=== PATIENT | female | born 1975 | race Caucasian/White ===

== ENCOUNTER 2018-06-12 15:38 | Emergency (ER) | payer MEDICAID, OTHER ==
[~2018-06-12] VITALS: Ht 172.7 cm; Wt 77.1 kg
[2018-06-12 17:18] LABS: Basophils # (auto) 0 uL; Basophils % (auto) 0.3 % (0.0-2.0); Eosinophils # (auto) 0 uL; Lymphocytes # (auto) 0.5 uL; Mean Corpuscular Hemoglobin 34.9 pg (28.0-32.0); Monocytes # (auto) 0.6 uL; Red Cell Distribution Width 13.9 % (11.8-14.3)
[2018-06-12 17:21] LABS: Hematocrit 44.8 % (36.0-46.0); Hemoglobin 15.1 g/dL (12.2-16.2); Lymphocytes % (auto) 3.1 % (10.0-50.0); Mean Corpuscular Hgb Conc. 33.7 g/dL (32.0-36.0); Mean Corpuscular Volume 103.5 fL (80.0-100.0); Monocytes % (auto) 3.9 % (0.0-12.0); Neutrophils # (auto) 13.9 uL; Neutrophils % (auto) 92.7 % (37.0-80.0); Platelet Count (auto) 251 10^3/uL (140-450); Red Blood Cells 4.33 10^6/uL (4.0-5.20)
[2018-06-12 17:36] LABS: Alanine Aminotransferase 19 U/L (13-56); Albumin 3.8 g/dL (3.4-5.0); Anion Gap 6 (5-15); Aspartate Aminotransferase 11 U/L (15-37); BUN/Creatinine Ratio 10.3; Blood Alcohol < 3.0 mg/dL (0-5); Blood Urea Nitrogen 8 mg/dL (7-18); Calcium 8.3 mg/dL (8.5-10.1); Carbon Dioxide 25 mmol/L (21-32); Chloride 112 mmol/L (98-107); GFR African American 104 mL/min; GFR Non-African American 86 mL/min; Glucose 132 mg/dL (74-106); Magnesium 2.2 mg/dL (1.6-2.6); Potassium 4.2 mmol/L (3.5-5.1); Sodium 143 mmol/L (136-145)
[2018-06-12 17:41] LABS: Alkaline Phosphatase 91 U/L (45-117); Bilirubin, Total 0.9 mg/dL (0.2-1.0); Total Protein 7.9 g/dL (6.4-8.2)
[2018-06-12] MEDS ORDERED: SODIUM CHLORIDE 0.9% 1,000 ML IV ONE (19:30)
[2018-06-13 06:00] VITALS: BP 138/68
== END 2018-06-13 06:37 | disposition home or self-care (01) ==
LOC: ER 15:45
DX: R41.82 Altered mental status, unspecified (principal); F19.10 Other psychoactive substance abuse, uncomplicated; Z88.0 Allergy status to penicillin
CPT/HCPCS: 36415; 70450; 71045; 80053; 80320; 83735; 84484; 84702; 85025; 93005; 96360; 99284; J7030

== ENCOUNTER 2019-05-04 16:38 | Emergency (ER) | payer MEDICAID ==
[~2019-05-04] VITALS: Ht 177.8 cm; Wt 89.4 kg
[2019-05-04 18:02] VITALS: BP 126/90
== END 2019-05-04 19:59 | disposition home or self-care (01) ==
LOC: ER 16:38
DX: M54.40 Lumbago with sciatica, unspecified side (principal)
CPT/HCPCS: 72100

== ENCOUNTER 2019-05-16 09:29 | Emergency (ER) | payer MEDICAID ==
[~2019-05-16] VITALS: Ht 177.8 cm; Wt 89.4 kg
[2019-05-16 10:04] VITALS: BP 113/77
[2019-05-16] MEDS ORDERED: KETOROLAC TROMETH 60MG/2ML VIAL IM ONE (11:00)
== END 2019-05-16 11:29 | disposition home or self-care (01) ==
LOC: ER 09:29
DX: M54.41 Lumbago with sciatica, right side (principal); F41.9 Anxiety disorder, unspecified; Z88.0 Allergy status to penicillin; Z90.710 Acquired absence of both cervix and uterus
CPT/HCPCS: 96372; 99283; J1885